=== PATIENT | male | born 2000 | race Two or more races ===

== ENCOUNTER 2025-02-22 14:03 | Emergency (ER) | payer MEDICAID, SELFPAY ==
--- NOTE | 2025-02-22 15:11 | EDNOTE_ITS ---
Upper Extremity Injury RME/HPI General Chief Complaint: Hand/Wrist Problems Stated Complaint: Right thumb and hand swelling since last night Time Seen by Provider: 02/22/25 14:07 Arrival date/time: 02/22/25 14:03 RME / HPI RME / HPI narrative: 24-year-old male patient who came in for evaluation regarding left hand pain. Onset of symptoms since last night after boxing training, sudden onset of swelling and pain to the left hand, more on the first metacarpal. Patient denies any other injury. No medication was taken prior to arrival. Related Data Previous Rx's ?Medication ?Instructions ?Recorded albuterol sulfate 90 mcg/actuation 2 puff inhalation Q 6H PRN cough / 08/09/22 aerosol inhaler wheezing #6.7 grams inhalational spacing device #1 ea 08/09/22 (Aerochamber MV spacer) ipratropium bromide 21 mcg (0.03 2 spray intranasal BI D #30 mL 08/09/22 %) nasal spray methylprednisolone 4 mg tablets in See Rx Instructions .Route 08/09/22 a dose pack (Medrol (Bert)) .COMPLEX #21 tabs promethazine-DM 6.25 mg-15 mg/5 mL 5 ml PO Q6H PRN cou gh #120 mL 08/09/22 oral syrup loperamide 2 mg capsule (Imodium 2 mg PO Q6H PRN loose stool #14 05/17/23 A-D) caps ibuprofen 600 mg tablet 600 mg PO Q8H PRN pain #30 t abs 02/22/25 Allergies Allergy/AdvReac Type Severity Reaction Status Date / Time No Known Allergies Allergy Verified 02/22/25 14:07 Review of Systems Review of Systems Narrative Review of Systems: Review of system reviewed and within normal limits except mentioned in HPI ED Exam Narrative Physical exam: VITAL SIGNS: Reviewed. GENERAL APPEARANCE: Alert and interactive, follows commands, no acute distress, HEAD AND FACE: Non-traumatic. ENT: PERRL, pink conjunctivitis, eyelid no trauma, Mucous membrane moist. NECK: Supple, nontender, no nuchal rigidity. RECTAL: Deferred. GENITAL: Deferred. NEUROLOGICAL: Gross motor function intact sensory function intact, Appropriate for age. MUSCULOSKELETAL: low back nontender, full range of motion. EXTREMITIES: Right hand tenderness, more on the first metacarpal, with bruising no deformity no crepitus, full range of motion. SKIN: Color pink, dry, no rash, no lacerations, no abrasions, no contusions. LYMPHATICS: Deferred. Course Quality Measures none Orders Category Date Time Status XR hand RT 2V Stat Exams 02/22/25 15:11 Completed Ibuprofen Tab [Motrin Tab] Med 02/22/25 15:11 Discontinued 600 mg PO X1 ONE Vital Signs Vital signs: Vital Signs Temperature 98.3 F 02/22/25 15:14 Pulse Rate 67 02/22/25 15:14 Respiratory Rate 16 02/22/25 15:14 Blood Pressure 124/75 02/22/25 15:14 Pulse Oximetry (%) 98 02/22/25 15:14 Oxygen Delivery Method Room Air 02/22/25 15:14 Extremity Injury MDM Narrative [facility] Narrative:: 24-year-old male patient who came in for evaluation regarding left hand pain. Onset of symptoms since last night after boxing training, sudden onset of swelling and pain to the left hand, more on the first metacarpal. Patient denies any other injury. No medication was taken prior to arrival. X-ray of the hand showed first metacarpal fracture, minimally displaced. Results discussed with the patient. Patient is not having snuffbox tenderness. Thumb spica splint applied. Distal neurovascularly intact post splinting Patient data External records reviewed:: None Clinical information provided by:: patient Social determinants that could affect healthcare access:: none Patient has the following chronic illnesses:: None How is presenting disease/condition affected by chronic disease/condition?: no chronic disease Evaluation data The following diagnostics were reviewed and interpreted by me:: radiology exam(s) Lab and/or radiology exams considered but not ordered:: None Interpretation Summary: See results MDM Medications / Prescriptions Medications or Prescriptions considered but not ordered:: None Medication administrations:: Medication Administration History Discontinued Medications Ibuprofen (Ibuprofen Tab 600 Mg Tablet) 600 mg PO X1 ONE Stop: 02/22/25 15:12 Last Admin: 02/22/25 15:44 Dose: Not Given Documented By: MARCELO Non-Admin Reason: Patient Refused Motrin Consultations Consultation(s) initiated? (list below): No Diagnosis Upper Extremity Injury Differential Diagnosis: sprain and strain of wrist and other (First metacarpal fracture, thumb fracture) Most likely diagnosis given after review of the tests above:: First metacarpal fracture Admission Indicated Admission indicated?: not indicated Explain why admission is indicated or not indicated:: None Admission Request Was there a request for admission?: No Disposition Plan Disposition Plan: Discharge Discharge Attestation Discharge Attestation: The patient was given an opportunity to ask questions and understood the discharge instructions. Discharge instructions specifically effects, indications for sooner follow up or return to the emergency department, and the expected course of current diagnosis. Patient condition: Stable Discharge Plan Plan Patient Disposition: HOME (Self Care) Discharge Disposition comment: Stable Prescriptions/Referrals Prescriptions/Med Rec: New ibuprofen 600 mg tablet 600 mg PO Q8H PRN (Reason: pain) Qty: 30 0RF No Action (DME) Aerochamber MV Spacer See Dose Instructions .ROUTE .MEDSUPPLY Qty: 1 0RF Dose Instruction: As directed Rx Instructions: As directed albuterol sulfate 90 mcg/actuation HFA aerosol inhaler 2 puff INH Q6H PRN (Reason: cough / wheezing ) Qty: 6.7 0RF Rx Instructions: administer with spacer promethazine-DM 6.25-15 mg/5 mL syrup 5 ml PO Q6H PRN (Reason: cough) Qty: 120 0RF methylprednisolone [Medrol (Bert)] 4 mg tablets,dose pack See Rx Instructions .ROUTE .COMPLEX Qty: 21 0RF Rx Instructions: Medrol Dose Bert use as directed on package label ipratropium bromide 21 mcg (0.03 %) spray,non-aerosol 2 spray INTRANASAL BID Qty: 30 0RF Rx Instructions: administer into each nostril loperamide [Imodium A-D] 2 mg capsule 2 mg PO Q6H PRN (Reason: loose stool) Qty: 14 0RF Referrals: No Primary/Family,Physician [Primary Care Provider] - In 1 week Problem List Clinical Impression: Fracture of first metacarpal Patient/Caregiver Discharge Instructions Discharge Activity: activity as tolerated Education Materials: ED Fracture, Thumb Additional Instructions: Thank you for the opportunity for serving you today. You are stable for discharged . You are advised to: Follow-up with your PCP in 1 to 2 days Return to ED for worsening of symptoms Increase oral fluids Take medication as prescribed As your PCP to refer you to a hand specialist as instructed Wear your splint for the next 4 weeks or until cleared by hand specialist Print Language: Turkish Stand Alone Forms: Aidee Award Info., Patient Portal Info Letter PA/AUTOMATIC TOE LASTER Supervising Physician PA/AUTOMATIC TOE LASTER Supervising Physician: MD Krista
--- NOTE | 2025-02-22 15:11 | XR_ITS ---
Examination: Hand, right 2 views Technique: Hand AP, lateral 2 views Date and time of exam: February 22, 2025 1526 hrs. Indications: Injury to the hand last night, hand pain Findings: Fractures proximal aspect first metacarpal, without significant displacement No dislocation Impression: Acute fractures proximal first metacarpal
[2025-02-22 15:14] VITALS: BP 124/75; PULSE 67; RESP 16; TEMP 36.8; O2SAT 98; BMI 21.9
== END 2025-02-22 18:15 | disposition home or self-care (01) ==
PROVIDERS: Emergency Provider Emergency Medicine
DX: S62.201A Unspecified fracture of first metacarpal bone, right hand, initial encounter for closed fracture (principal); X58.XXXA Exposure to other specified factors, initial encounter; Y93.71 Activity, boxing
CPT/HCPCS: 29125; 73120; 99283

== ENCOUNTER → 2025-04-02 | Outpatient (CLI) | payer MEDICAID, SELFPAY ==
--- NOTE | 2025-04-02 15:23 | XR_ITS ---
Examination: Wrist, right 3 views Technique: Wrist AP, oblique, lateral 3 views Date and time of exam: April 02, 2025 1528 hours INDICATIONS: Acute fracture first metacarpal February 22, 2025 FINDINGS: Significant partial healing fracture proximal aspect first metacarpal with stable and satisfactory alignment IMPRESSION: Significant partial healing fracture proximal aspect first metacarpal with stable and satisfactory alignment
--- NOTE | 2025-04-02 15:23 | XR_ITS ---
Examination: Hand, right 3 views Technique: Hand AP, oblique, lateral 3 views Date and time of exam: April 02, 2025 at 1528 hours Compared to hand films dating to February 22, 2025 INDICATIONS: Injury to the hand with fracture first metacarpal February 22, 2025. FINDINGS: Healing fracture first metacarpal with stable and satisfactory alignment IMPRESSION: Partial healing fracture proximal first metacarpal with stable and satisfactory alignment
== END | disposition home or self-care (01) ==
LOC: COPL 15:14 → CDIM 04-14 11:17
PROVIDERS: PCP Internal Medicine; Referring Provider Nurse Practitioner Gerontology; Visit Provider Nurse Practitioner Gerontology
DX: S62.291A Other fracture of first metacarpal bone, right hand, initial encounter for closed fracture (principal); X58.XXXA Exposure to other specified factors, initial encounter
CPT/HCPCS: 73110; 73130